=== PATIENT | female | born 2000 | race Caucasian/White ===

== ENCOUNTER 2022-01-04 01:00 | Emergency (ER) | payer SELFPAY ==
[2022-01-04] MEDS ORDERED: Sodium Chloride 0.9% 1,000 ML IV SCH (01:30)
[2022-01-04] MEDS ORDERED: Sodium Chloride 0.9% 10 ML Syringe FLUSH PRN (01:30)
[2022-01-04 01:58] LABS: BARBITURATE SCREEN,URINE NEGATIVE (NEGATIVE); BENZODIAZEPINES SCREEN,URINE NEGATIVE (NEGATIVE); BUPRENORPHINE SCREEN,URINE NEGATIVE (NEGATIVE); METHAMPHETAMINE SCREEN, URINE NEGATIVE (NEGATIVE); THC SCREEN,URINE 50 NG/ML POSITIVE (NEGATIVE)
[2022-01-04 02:08] LABS: ANION GAP 12.7 mmol/L (5-15)
== END 2022-01-04 03:43 | disposition home or self-care (01) ==
LOC: VM.ED 01:00
DX: R20.0 Anesthesia of skin (principal)
CPT/HCPCS: 70450; 80053; 80305-QW; 81003; 81025; 83735; 85025; 99284; J7030